=== PATIENT | female | born 1990 | race Caucasian/White ===

== ENCOUNTER 2019-05-01 18:55 | Emergency (ER) | payer OTHER ==
[2019-05-01 20:17] LABS: URINE BLOOD (Dip) POC Trace-intact (NEGATIVE); URINE GLUCOSE (Dip) POC Negative (NEGATIVE); URINE KETONES (Dip) POC 1+ (NEGATIVE); URINE LEUKOCYTE EST (Dip) POC 1+ (NEGATIVE); URINE NITRITE (Dip) POC Negative (NEGATIVE); URINE TOTAL PROTEIN POC 2+ (NEGATIVE)
[2019-05-01 20:17] LABS: URINE PH (Dip) POC 7.5 (5.0-8.5)
[2019-05-01] MEDS: PHENAZOPYRIDINE 100 MG TAB PO (20:21)
== END 2019-05-01 21:01 | disposition home or self-care (01) ==
LOC: E/R 18:55
DX: N30.90 Cystitis, unspecified without hematuria (principal)
CPT/HCPCS: 81003; 81025; 99283